=== PATIENT | male | born 1970 ===

== ENCOUNTER 2024-09-13 09:55 | Day surgery (SDC) | payer BC, SELFPAY ==
[2024-09-13] VITALS (12 sets, daily range): BP systolic 140–158; BP diastolic 92–108; BMI 28.7
[2024-09-13 10:31] LABS: Hematocrit 49.1 % (39.0-52.0); Hemoglobin 17.2 g/dL (13.0-18.0); Mean Corpuscular Hgb 30.7 pg (27.0-31.0); Mean Corpuscular Volume 87.5 fL (80.0-94.0); Platelet Count 255 10^3/uL (130-400); Red Blood Cell Count 5.61 10^6/uL (4.70-6.10); White Blood Cell Count 5.3 10^3/uL (4.8-10.8)
[2024-09-13 10:43] LABS: Blood Urea Nitrogen 17 mg/dl (9-20); Calcium 10.2 mg/dl (8.4-10.2); Carbon Dioxide 26 mmol/L (22-30); Chloride 102 mmol/L (98-107); Glucose 110 mg/dl (70-99); Potassium 5.1 mmol/L (3.5-5.1); Sodium 141 mmol/L (135-145); eGFR > 60.00
[2024-09-13] MEDS: NSS 257 ML IV (11:01)
[2024-09-13 13:18] LABS: ACT-LR - POC 348 Seconds (116-155)
--- NOTE | 2024-09-13 13:35 | ITS.CL.CATH ---
Gameplay Engineer - Catheterization
Cardiac Catheterization
Procedure Report:
CARDIAC CATHETERIZATION REPORT
Date of Procedure: 09/13/2024
Referring: Josafat Simon M.D.
INDICATION: Chest pain, abnormal troponin, concern for ACS.
PROCEDURE:
1. Left heart catheterization.
2. Coronary angiography.
3. Successful IVUS of the ostial left main coronary artery.
A total of 37 minutes of procedural/moderate sedation was utilized. An independent medical operations supervisor was present to assist with and help manage the patient's level of consciousness and physiologic status.
ACCESS:
1. 6 Egyptian right radial artery using a modified Seldinger technique.
CATHETERS:
1. 5 Egyptian JR4.
2. 5 Egyptian JL 3.5.
3. 6 Egyptian JL 3.5 guiding catheter.
HEMODYNAMIC DATA
Weight (kg): 85.7
AO (s/d/x, mmHg): 124/87/104
LV (s/x mmHg): 126/6
LEFT VENTRICULOGRAPHY: Not performed.
CORONARY ANGIOGRAPHY
Dominance: Right.
Left Main: Normal size, trifurcating vessel. There is tapering of the ostial left main coronary artery.
LAD: Normal size vessel giving rise to several small diagonals before wrapping around the apex. There is no coronary artery disease.
Ramus: Medium size vessel supplying a significant portion of the anterolateral wall. There is no coronary artery disease.
Circumflex: Large size, nondominant vessel that is essentially a single large marginal supplying the entire inferolateral wall. There is moderate tortuosity. There is no coronary artery disease.
RCA: Normal size, dominant vessel with at least moderate tortuosity, particularly in the proximal vessel. There is no coronary artery disease.
INTERVENTION(S)
1. Successful IVUS of the left main coronary artery, demonstrating no occlusive coronary artery disease.
Narrative:
The decision was made to perform intracoronary imaging. The diagnostic catheter was removed over a wire and exchanged for 6 Egyptian JL 3.5 guiding catheter. The guiding catheter was advanced into the ascending aorta and seated in the left main
coronary artery. Additional heparin was given to obtain an ACT greater than 250 seconds. After crossing the lesion with a coronary wire into the ramus, an IVUS catheter was advanced through the guiding catheter and into the ostium of the artery.
Ring down was performed once the imaging crystal was no longer inside of the guiding catheter. The IVUS catheter was advanced into the proximal ramus. Intravascular ultrasound was performed in a retrograde fashion using a slow pullback.
Intracoronary imaging demonstrated no evidence of atherosclerotic disease throughout the coronary vessel. Particular attention was paid to the ostium of the left main coronary artery which demonstrated no evidence of atherosclerosis or disease.
The catheter was disengaged and the wire/IVUS catheter was withdrawn. The catheter was removed over a standard J-wire.
Closure Device: Vascular band.
Radiation (mGy): 690.07
DAP (cm2.Gy): 55.3311
Fluoroscopy time (minutes): 8.0
CONCLUSIONS
1. Right dominant circulation with angiographic tapering of the ostium of the left main coronary artery, found to be normal on intravascular ultrasound. There is no other coronary artery disease. There is moderate tortuosity throughout the entire
coronary tree.
2. Normal filling pressures (LVEDP = 6 mmHg at 85.7 kg).
RECOMMENDATIONS:
1. Expectant management after cardiac catheterization via right radial approach.
2. Limited weight bearing on the right wrist for one week.
3. Continue aggressive primary prevention.
4. Risk factor modification through outpatient public speaking teacher.
5. Stable for outpatient follow-up.
Copy to: Josafat Simon M.D.
Isiah Loaiza DO, FACC, FACP
== END 2024-09-13 16:29 | disposition home or self-care (01) ==
LOC: CATH 09:55
PROVIDERS: ATTENDING PHYSICIAN Internal Medicine Cardiovascular Disease; OTHER PHYSICIAN Internal Medicine Cardiovascular Disease
DX: R07.9 Chest pain, unspecified (principal); E78.5 Hyperlipidemia, unspecified; Z88.0 Allergy status to penicillin
CPT/HCPCS: 92978; 99152; 99153; 80048; 85027; 85347; 93458; C1894; Q9967